=== PATIENT | male | born 1960 | race Caucasian/White ===

== ENCOUNTER 2016-08-07 14:34 | Emergency (ER) | payer OTHER ==
[~2016-08-07] VITALS: Wt 139.5 kg
[~2016-08-07 14:34] MED LIST: AZIT250T94 PO; PSEU120T51 PO
[2016-08-07 14:36] VITALS: Wt 139.5 kg
[2016-08-07 20:24] VITALS: BP 194/89; PULSE 84; RESP 20
--- NOTE | 2016-08-07 20:45 | ERD ---
ER Documentation Chief Complaint Date/Time DATE: 08/07/16 TIME: 17:26 Chief Complaint SENT FOR ELEVATED BP HPI This pleasant 55-year-old male patient presents to emergency department today for evaluation of new onset of hypertension. Patient was at his [facility], [facility] Dr. Willard Mcleod referred to emergency department for blood pressure of 180/120. Physician had documentation of readings from 2015 patient blood pressure has been 145/111, 160/105. Patient is asymptomatic, denies chest pain, shortness of breath, dizziness, or palpitation. States he has not seen his regular physician in the last 12 months. Patient has no prior history of taking hyper tension medication, states he has been seen and encouraged to lose weight. Patient currently reports a 20 pound weight loss. Patient denies any pre-existing diagnosis. Patient denies coronary artery disease, congestive heart failure, diabetes. He is currently on no medications states he does not like to take medication, patient denies smoking, or family history of hypertension, coronary artery disease, or diabetes. ROS All systems reviewed and are negative except as per history of present illness. Medications Home Meds Active Scripts Pseudoephedrine Hcl (Sudafed 12 Hour) 120 Mg Tablet.sa, 120 MG PO BID, #6 Prov:ÓSCAR MANN PA-C 04/06/15 Azithromycin* (Zithromax*) 250 Mg Tablet, 250 MG PO .ZPACK DIRECTED, #6 TAB TAKE 500 MG (2 TABS) THE FIRST DAY THEN 250 MG (1 TAB) DAYS 2-5 Prov:ÓSCAR MANN PA-C 04/06/15 Allergies Allergies: Coded Allergies: No Known Allergy (Unverified , 03/27/14) PMhx/Soc Medical and Surgical Hx: pt denies Medical Hx, pt denies Surgical Hx Hx Alcohol Use: No Hx Substance Use: No Hx Tobacco Use: No Physical Exam Vitals Vital Signs Date Time Temp Pulse Resp B/P Pulse Ox O2 Delivery O2 Flow Rate FiO2 08/07/16 14:36 98.0 78 18 184/112 99 Vitals stable, blood pressure 184/112 asymptomatic Physical Exam Const: No acute distress Head: Atraumatic Eyes: Normal Conjunctiva ENT: Normal External Ears, Nose and Mouth. Neck: Full range of motion..~ No meningismus. Resp: Clear to auscultation bilaterally no rales wheezes or rhonchi Cardio: Regular rate and rhythm, no murmurs S1-S2, no S3, S4 Abd: Obese, distended, nontender Skin: No petechiae or rashes Back: No midline or flank tenderness Ext: Lower extremity pitting edema +1 Neur: Awake and alert Psych: Normal Mood and Affect Procedures/MDM EKG: Rate/Rhythm: Normal Sinus Rhythm, and a ventricular rate of 90 bpm, no ectopy, no ST changes QRS, ST, T-waves: No changes consistent w/ acute ischemia Impression: No evidence of ischemia or arrhythmia Chest X-ray 1V Interpreted by Dr Regina Everett Chest x-ray findings: the heart is mildly enlarged. Pulmonary vascularity. Is within normal limits. There is no evidence of focal pulmonary parametrial ossification or pleural effusion. Degenerative changes of the thorax spine are observed. The visualized upper abdomen is unremarkable. No radiographic evidence of acute cardiopulmonary pathology This pleasant 55-year-old male patient presents to the emergency department today for evaluation of hypertension. Patient was at his dentist and found to be hypertensive. He was sent to the emergency department for evaluation. Patient has no prior history of hypertension. He denies any symptoms of hypertension. Patient denies headache, nausea, chest pain, shortness of breath , palpitations. Patient has documentation of blood pressure 145/111 and 2015. Malignant hypertension, aortic dissection, AMI, ACS, is not suspected. ECG shows normal sinus rhythm at a ventricular rate of 90 bpm, chest x-ray pending, patient will be discharged home and called for any abnormal findings [phone]. Patient will be discharged with strict return to emergency room precautions., Return for headache, chest pain, shortness of breath, dizziness. Patient instructed to follow-up with primary care physician for full evaluation of hypertension. I feel the patient is stable for discharge at this time with strict return to emergency room precautions. Close outpatient follow- up by primary care physician.. I have discussed results, examination findings, the treatment plan with the patient and family present prior to discharge. Indications for emergent reevaluation, side effects of medication were also discussed. All questions were answered. Patient verbalizes understanding and agrees with plan of care. Late entry. Chest x-ray results available after patient has been discharged. Patient called on cell phone [phone] details of chest x-ray discussed no acute abnormality seen. Mild cardiac enlargement. Findings consistent with hypertension that is chronic. Patient instructed to follow-up with primary care physician on Tuesday that he probably will be started on blood pressure medication. Verbal agreement by patient to go to primary physician's office for evaluation and treatment of hypertension on Tuesday, patient will return to emergency department for shortness of breath, headache, dizziness, chest pain or shortness of breath. Departure Diagnosis: Primary Impression: Hypertension Hypertension type: essential hypertension Qualified Code: I10 - Essential hypertension Condition: Stable Patient Instructions: High Blood Pressure (Hypertension) Additional Instructions: Thank you for for coming to [facility] for your care today. Please ask your nurse or provider if you have questions about your care today and do not leave until all your questions have been answered. Please use any medications given as directed and follow-up with your doctor (or the doctor you were referred to) in the next 2-3 days. If you do not have a primary care doctor you may follow [place] [facility] [place] ([place] You may also use motrin and tylenol as needed for fever and/or pain unless instructed otherwise by your provider or nurse. Indications for more urgent follow-up have been discussed, but you may return to the Emergency Department at ANY time for any worrisome or worsening symptoms. If you have abdominal pain, please know that no test or exam you received is perfect and you should follow up within 8 hours for continued pain. If you had any imaging studies today, such as an X-Ray or CT Scan, these studies will be reviewed later by a radiologist. You will be called if there are important findings that were not identified today, so make sure the contact information you provided at registration is correct. If you received any narcotic pain control medicine today, such as Vicodin, Morphine or Dilaudid, your coordination and judgment may be affected for a number of hours. Please do not drive or operate heavy machinery, and you may want someone to assist you at home. If you were given a prescription for narcotic medication, be aware that it is very addictive- use sparingly and only if necessary. TAVARES MARQUEZ Aug 07, 2016 17:34
--- NOTE | 2016-08-08 10:52 | RADRPT ---
PROCEDURE: XR Chest. CLINICAL INDICATION: Hypertension. Evaluate for congestive heart failure. TECHNIQUE: Chest x-ray, two views. COMPARISON: None. FINDINGS: The heart is mildly enlarged. Pulmonary vascularity is within normal limits. There is no evidence of focal pulmonary parenchymal opacification or pleural effusion. Degenerative changes of the thora cic spine are observed. The visualized upper abdomen is unremarkable. IMPRESSION: Mild cardiac enlargement. No radiographic evidence of acute cardiopulmonary pathology. RPTAT: QQ .Regina Everett MD, MD Date Time Electronically viewed and signed by .Regina Everett MD, MD on 08/07/2016 19:57 .T/
--- NOTE | 2016-08-10 13:58 | RADRPT ---
Vent Rate: 90 bpm RR Interval: 0 msec MI Interval: 148 msec QRS Duration: 90 msec QT Interval: 358 msec QTC Interval: 437 msec P-R-T [place]: -3 - 27 - 59 degrees Normal sinus rhythm Normal ECG Electronically Signed By: Andrew Alvarado [id number]
== END 2016-08-07 20:26 | disposition home or self-care (01) ==
LOC: FTE 14:34
DX: I10 Essential (primary) hypertension (principal)
CPT/HCPCS: 71020; 93005; Z7502

== ENCOUNTER 2017-03-03 10:04 | Day surgery (SDC) | END 2017-03-03 13:06 | disposition home or self-care (01) ==

== ENCOUNTER 2017-09-29 10:44 | Inpatient (IN) | END 2017-10-05 21:10 | disposition home or self-care (01) | DRG 175 ==

== ENCOUNTER 2017-12-22 05:19 | Emergency (ER) | END 2017-12-22 09:54 | disposition left against medical advice (07) ==